=== PATIENT | female | born 1935 ===

== ENCOUNTER → 2020-11-19 | Outpatient (CLI) | payer MEDICARE ==
[2020-11-19 16:10] LABS: BILIRUBIN,URINE NEGATIVE (NEG); CLARITY,URINE CLOUDY; COLOR,URINE YELLOW; NITRITE,URINE POSITIVE (NEG); PROTEIN,URINE 100 mg/dL (NEG-TRACE)
[2020-11-19 16:25] LABS: BACTERIA,URINE MANY /HPF (0-FEW); RBC,URINE 20-40 /HPF (0-2); WBC,URINE >40 /HPF (0-4)
== END ==
LOC: SPEC 15:49
PROVIDERS: ATTEND Internal Medicine
DX: R35.8 Other polyuria (principal); R30.9 Painful micturition, unspecified
CPT/HCPCS: 81001; 87086